=== PATIENT | male | born 1935 | race African-American/Black ===

== ENCOUNTER 2020-05-05 21:49 | Emergency (ER) | payer MEDICARE, BC ==
[2020-05-05 23:23] LABS: #Eosinphils 0.1 thou/uL (0.0-0.7); #Lymphocytes 0.5 thou/uL (1.20-3.40); #Monocytes 0.4 thou/uL (0.11-0.59); #Neutrophils 2.7 thou/uL (1.40-6.50); %Basophils 0.7 % (0.0-1.0); %Eosinophils 2.7 % (0.0-10.0); %Lymphocytes 13.3 % (21.0-51.0); %Monocytes 10.8 % (0.0-10.0); %Neutrophils 72.4 % (42.0-75.0); Hemoglobin 9.8 g/dL (14.0-18.0); Mean Corpuscular HGB CONC 28.9 g/dL (32.0-36.0); Mean Corpuscular Hemoglobin 28.1 pg (27.0-31.0); Mean Corpuscular Volume 97.1 fL (78.0-98.0); Mean Platelet Volume 8.1 fL (7.4-10.4); Platelet Count 179 thou/uL (130-400); RBC Distribution Width 16.4 % (11.5-14.5); White Blood Cell (WBC) Count 3.8 thou/uL (4.8-10.8)
[2020-05-05 23:37] LABS: ALT (SGPT) 7 U/L (8-55); AST (SGOT) 11 U/L (5-34); Albumin 2.8 g/dL (3.4-4.8); Alkaline Phosphatase 57 U/L (40-110); Anion Gap 17 mmol/L (10-20); BUN (Urea Nitrogen) 40 mg/dL (8.4-25.7); Bilirubin, Total 0.4 mg/dL (0.2-1.2); CK (CPK) 51 U/L (30-200); Calc. Creatinine Clearance 0 mL/min (70-130); Calcium 7.9 mg/dL (7.8-10.44); Carbon Dioxide 24 mmol/L (23-31); Chloride 104 mmol/L (98-107); Estimated GFR-MDRD 16; Globulin 3.7 g/dL (2.4-3.5); Glucose 88 mg/dL (83-110); Potassium 4.9 mmol/L (3.5-5.1); Protein, Total 6.5 g/dL (5.8-8.1); Sodium 140 mmol/L (136-145)
[2020-05-05 23:39] LABS: Anisocytosis SLIGHT = 6-15 cells (100X) (0-5/hpf); MDiff Complete? YES; Platelet Morphology Comment Appears Adequate
--- NOTE | 2020-05-06 07:19 | RAD ---
RIGHT ELBOW: DATE: 05/05/2020. FINDINGS: Multiple views show no evidence of fracture, dislocation, or joint effusion. All bones appeared inta ct. IMPRESSION: No acute bony finding. POS: HOME
--- NOTE | 2020-05-06 07:42 | RAD ---
PORTABLE CHEST: DATE: 05/05/2020. FINDINGS: An AP portable film at 2214 is compared with a 01/15/2019 study. The heart is mildly enlarged, perhap s a little more so than before. However, there was no congestive change, pleural effusion, or lobar pulmonary infiltrate. Some mild prominence of some of the basilar markings seems minimally different than the 2019 study. IMPRESSION: Cardiomegaly, but no acute findings otherwise. No traumatic changes appreciated. POS: HOME
--- NOTE | 2020-05-06 07:56 | CT ---
PRELIMINARY REPORT/DIRECT RADIOLOGY/EMERGENCY AFTER HOURS PROCEDURE: EXAMS: 1. CT Head, without Contrast 2. CT Cervical Spine, without Contrast DATE/ TIME: 05/05/2020, 10:07 PM INDICATION: Trauma, fall; altered mental status TECHNIQUE: Axial CT imaging was performed through the head without intravenous administration of con trast. Helical CT was then performed through the cervical spine with coronal and sagittal reconstruc tions generated and reviewed. Exam was performed using one or more of the following dose reduction t echniques: automated exposure control, adjustment of the mA and/or kV according to patient size, or use of iterative reconstruction technique. COMPARISON: None. CT HEAD FINDINGS: There is no intracranial hemorrhage. The brain exhibits caozfane-px-ujuirntv atro phy with cortical thinning. Fairly confluent hypoattenuation in the residual cerebral white matter i s seen; although nonspecific this is most commonly related to the sequela of chronic small-vessel isc hemia. There is no CT evidence of an acute infarct. Not well seen is what appears to be an area of cortical calcification superiorly in the right parietal lobe. 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 Cranial vault shows no evidence of fracture. Imaging begins at the lower maxillary level. Orbital s tructures are unremarkable. Paranasal sinuses and left mastoid air cells are clear. A small amount of fluid is seen in the right mastoid. 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 IMPRESSION: 1. CT imaging shows no acute traumatic intracranial abnormality. 2. 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 CT CERVICAL SPINE FINDINGS: There is no evidence of fracture. Multilevel advanced facet arthropathy , left worse than right, is seen. There is no malalignment. Robust anterior spondylosis is seen at C5-C6 and C6-C7. Prevertebral and retropharyngeal soft tissues are normal. There is no apical pneum othorax. IMPRESSION: 1. CT of the cervical spine shows no evidence of fracture. 2. Degenerative spondylosis. ELECTRONICALLY SIGNED BY: Severiano Ulloa DO May 05, 2020 10:58:[address] PM [address] FINAL REPORT CT OF THE CERVICAL SPINE: DATE: 05/05/2020. FINDINGS: CT of the cervical spine was done following trauma. No acute fracture was seen. There is no disloca tion or soft tissue swelling. The C1 to dens distance is normal. Degenerative changes are present t hroughout the spine. Some bridging anterior osteophytes are quite prominent at the C4 through C7 lev els. There is loss of the normal cervical lordosis which could be due to muscle spasm or could be th e patient's norm. Findings by level follow: C1-C2: No acute findings. C2-C3: No acute findings. C3-C4: Concentric disk-osteophyte complex. Mild right foraminal narrowing and moderate left foramin al narrowing due to osteophytes. C4-C5: Severe left facet arthritis and severe left foraminal stenosis. Mild right foraminal stenosi s. C5-C6: Moderate right foraminal stenosis and severe left foraminal stenosis. C6-C7: Moderate right foraminal stenosis. Significant disk-osteophyte complex posteriorly without c entral canal stenosis. C7-T1: No acute findings. T1-T2: No acute findings. T2-3: No acute findings. The soft tissues of the neck showed no traumatic findings. IMPRESSION: Diffuse degenerative changes as noted above. Mild loss of lordosis, but no fracture seen. POS: HOME
--- NOTE | 2020-05-06 07:58 | CT ---
PRELIMINARY REPORT/DIRECT RADIOLOGY/EMERGENCY AFTER HOURS PROCEDURE: EXAMS: 1. CT Head, without Contrast 2. CT Cervical Spine, without Contrast DATE/ TIME: 05/05/2020, 10:07 PM INDICATION: Trauma, fall; altered mental status TECHNIQUE: Axial CT imaging was performed through the head without intravenous administration of con trast. Helical CT was then performed through the cervical spine with coronal and sagittal reconstruc tions generated and reviewed. Exam was performed using one or more of the following dose reduction t echniques: automated exposure control, adjustment of the mA and/or kV according to patient size, or use of iterative reconstruction technique. COMPARISON: None. CT HEAD FINDINGS: There is no intracranial hemorrhage. The brain exhibits wudnrvbt-no-anhoukcr atro phy with cortical thinning. Fairly confluent hypoattenuation in the residual cerebral white matter i s seen; although nonspecific this is most commonly related to the sequela of chronic small-vessel isc hemia. There is no CT evidence of an acute infarct. Not well seen is what appears to be an area of cortical calcification superiorly in the right parietal lobe. 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 Cranial vault shows no evidence of fracture. Imag ing begins at the lower maxillary level. Orbital structures are unremarkable. Paranasal sinuses and left mastoid air cells are clear. A small amount of fluid is seen in the right mastoid. Marked deg enerative osteoarthrosis of the right temporomandibular articulation is seen with possible chronic fr acture-nonunion of the condyle. IMPRESSION: 1. CT imaging shows no acute traumatic intracranial abnormality. 2. 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 CT CERVICAL SPINE FINDINGS: There is no evidence of fracture. Multilevel advanced facet arthropathy , left worse than right, is seen. There is no malalignment. Robust anterior spondylosis is seen at C5-C6 and C6-C7. Prevertebral and retropharyngeal soft tissues are normal. There is no apical pneum othorax. IMPRESSION: 1. CT of the cervical spine shows no evidence of fracture. 2. Degenerative spondylosis. ELECTRONICALLY SIGNED BY: Severiano Ulloa DO May 05, 2020 10:58:[address] PM CDT FINAL REPORT CT OF THE BRAIN WITHOUT CONTRAST: DATE: 05/05/2020. FINDINGS: No prior films were available for comparison. Diffuse atrophy and mild compensatory dilatation of the ventricles was present. Deep white matter enoch cency is consistent with chronic microvascular ischemic change. No intracranial bleeding or extraaxi al hematoma was seen. There is no sign of acute stroke, mass, or edema. Some calcification is seen potentially relating to the meninges in the high right parietal region. I doubt its current signific ance. The skull appears intact as did the visible portions of the facial bones. The visible paranas al sinuses are clear. IMPRESSION: No acute intracranial findings. Chronic ischemic changes as noted. POS: HOME
== END 2020-05-06 00:13 | disposition home or self-care (01) ==
LOC: BURERS 21:49
DX: S00.93XA Contusion of unspecified part of head, initial encounter (principal); I12.0 Hypertensive chronic kidney disease with stage 5 chronic kidney disease or end stage renal disease; N18.6 End stage renal disease; Z99.2 Dependence on renal dialysis; E78.5 Hyperlipidemia, unspecified; Z87.891 Personal history of nicotine dependence; W18.30XA Fall on same level, unspecified, initial encounter
CPT/HCPCS: 36415; 70450; 71045; 72125; 80053; 82550; 83605; 83880; 84484; 85025; 87040; 87077; 87149; 87186; 93005; 96360

== ENCOUNTER 2020-06-23 20:30 | Emergency (ER) | payer MEDICARE, BC ==
[2020-06-23 21:21] LABS: #Eosinphils 0.1 thou/uL (0.0-0.7); #Lymphocytes 0.5 thou/uL (1.20-3.40); #Monocytes 0.3 thou/uL (0.11-0.59); %Basophils 0.6 % (0.0-1.0); %Eosinophils 2.5 % (0.0-10.0); %Lymphocytes 11.5 % (21.0-51.0); %Monocytes 8.5 % (0.0-10.0); %Neutrophils 76.8 % (42.0-75.0); Hemoglobin 10.8 g/dL (14.0-18.0); Mean Corpuscular HGB CONC 29.8 g/dL (32.0-36.0); Mean Corpuscular Hemoglobin 28.9 pg (27.0-31.0); Mean Platelet Volume 7.6 fL (7.4-10.4); Platelet Count 224 thou/uL (130-400); RBC Distribution Width 18.2 % (11.5-14.5); Red Blood Cell (RBC) Count 3.75 mill/uL (4.70-6.10); White Blood Cell (WBC) Count 3.9 thou/uL (4.8-10.8)
[2020-06-23 21:34] LABS: Anion Gap 17 mmol/L (10-20); BUN (Urea Nitrogen) 31 mg/dL (8.4-25.7); Calc. Creatinine Clearance 0 mL/min (70-130); Carbon Dioxide 24 mmol/L (23-31); Chloride 102 mmol/L (98-107); Estimated GFR-MDRD 14; Glucose 93 mg/dL (83-110); Potassium 4.2 mmol/L (3.5-5.1); Sodium 139 mmol/L (136-145)
--- NOTE | 2020-06-24 10:04 | CT ---
CT OF THE BRAIN WITHOUT CONTRAST: INDICATION: History of trauma. COMPARISON: Prior exam dated 04/15/2020. FINDINGS: The calcification overlying a cortex of the right parietal lobe is stable. There is chronic small-ve ssel white matter ischemic change and generalized atrophy that is stable. No definite acute infarct, hemorrhage, or hydrocephalus is noted. There is partial effusion of the right mastoid air cells whi ch is stable. The skull is intact. IMPRESSION: 1. No acute intracranial abnormality. 2. Stable chronic findings as above. POS: BH
--- NOTE | 2020-06-24 10:13 | CT ---
CT OF THE CERVICAL SPINE WITHOUT CONTRAST: INDICATION: History of fall. COMPARISON: Prior exam dated 06/23/2020. FINDINGS: Spinal alignment is within normal limits. There is moderate multilevel degenerative disk disease mos t pronounced at C5-6 and C6-7. There is mild multilevel facet osteoarthrosis but moderate left multi level facet osteoarthrosis at C4-5. No acute fracture or subluxation is evident. The craniocervical junction is normal-appearing. Prevertebral soft tissues and lung apices appear within normal limits . IMPRESSION: 1. No acute osseous abnormality. 2. Preliminary report on the CT of the head and CT of the cervical spine was called by Dr. Mcfarlane to Dr. Rangel at 2141 hours on 06/23/2020. CODE CR POS: BH
== END 2020-06-23 22:20 | disposition home or self-care (01) ==
LOC: BURERS 20:30
DX: S09.90XA Unspecified injury of head, initial encounter (principal); I12.0 Hypertensive chronic kidney disease with stage 5 chronic kidney disease or end stage renal disease; N18.6 End stage renal disease; D63.1 Anemia in chronic kidney disease; E78.5 Hyperlipidemia, unspecified; I25.10 Atherosclerotic heart disease of native coronary artery without angina pectoris; Z87.891 Personal history of nicotine dependence; Z99.2 Dependence on renal dialysis; W18.30XA Fall on same level, unspecified, initial encounter
CPT/HCPCS: 36415; 70450; 72125; 80048; 85025

== ENCOUNTER 2020-08-11 09:27 | Emergency (ER) | payer BC, MEDICARE ==
[2020-08-11 10:08] LABS: #Lymphocytes 0.4 thou/uL (1.20-3.40); #Monocytes 0.5 thou/uL (0.11-0.59); #Neutrophils 2.8 thou/uL (1.40-6.50); %Basophils 1.3 % (0.0-1.0); %Eosinophils 0.8 % (0.0-10.0); %Lymphocytes 10.2 % (21.0-51.0); %Monocytes 12.2 % (0.0-10.0); %Neutrophils 75.5 % (42.0-75.0); Hemoglobin 10.9 g/dL (14.0-18.0); Mean Corpuscular Hemoglobin 29.3 pg (27.0-31.0); Mean Corpuscular Volume 97.7 fL (78.0-98.0); Mean Platelet Volume 7.4 fL (7.4-10.4); Platelet Count 167 thou/uL (130-400); RBC Distribution Width 16.4 % (11.5-14.5); Red Blood Cell (RBC) Count 3.72 mill/uL (4.70-6.10); White Blood Cell (WBC) Count 3.7 thou/uL (4.8-10.8)
[2020-08-11 10:19] LABS: ALT (SGPT) Less than 7 U/L (8-55); AST (SGOT) 17 U/L (5-34); Albumin 3.1 g/dL (3.4-4.8); Alkaline Phosphatase 61 U/L (40-110); Anion Gap 22 mmol/L (10-20); BUN (Urea Nitrogen) 77 mg/dL (8.4-25.7); Bilirubin, Total 0.4 mg/dL (0.2-1.2); Calc. Creatinine Clearance 0 mL/min (70-130); Carbon Dioxide 20 mmol/L (23-31); Chloride 103 mmol/L (98-107); Globulin 4.2 g/dL (2.4-3.5); Glucose 123 mg/dL (83-110); Potassium 4.9 mmol/L (3.5-5.1); Protein, Total 7.3 g/dL (5.8-8.1); Sodium 140 mmol/L (136-145)
[2020-08-11 10:21] LABS: MDiff Complete? YES; Manual Diff?? NO
[2020-08-11] MEDS ORDERED: Acetaminophen 325 MG TAB ONE (11:01)
--- NOTE | 2020-08-11 19:20 | RAD ---
PORTABLE CHEST: Date: 08-11-2020 An AP portable film at 1005 is compared with a 05-05-2020 study. FINDINGS: Mild cardiomegaly is about the same as before. There is no vascular congestion, edema, or pleural eff usion. The lungs are fully inflated and clear. Some calcified nodes are noted in the right hilum as w ell as a calcified granuloma in the right lung. There is no mediastinal widening or shift. No fractur es were appreciated. IMPRESSION: No acute thoracic findings. POS: HOME
--- NOTE | 2020-08-11 19:24 | RAD ---
RIGHT SHOULDER THREE VIEWS: Date: 08-11-2020 FINDINGS: There is at least an anterior subluxation of humeral head, if not dislocation. A very prominent Hill- Sachs deformity is seen in the humeral head. There is some irregularity of the superior lateral porti on of the glenoid fossa. Looking back at a prior chest radiograph dated 04-15-2020, the right shoulder can barely be seen at the edge of the film. There is a suggestion that the appearance is probably not substantially different. Thus, my suspicion is that this subluxation/mild dislocation is chronic. Th e Hill-Sachs deformity suggests prior dislocations. Whether any part of this has an acute component t o it or not, it is difficult to be sure of. The AC joint is normal in width. The visible adjacent rib s appear intact. IMPRESSION: 1. Evidence of prior shoulder dislocations. 2. Anterior subluxation of the humeral head if not a slight dislocation. As stated above, I am more i nclined to believe this a chronic finding, however, the recent fall could have exacerbated the situat ion further. Findings discussed with Dr. Rangel at 1051 on 08-11-2020. POS: HOME
--- NOTE | 2020-08-11 20:28 | CT ---
CT BRAIN WITHOUT CONTRAST: Date: 08-11-2020 Computed tomography of the brain was done after a fall. FINDINGS: There is a large obvious soft tissue hematoma of the scalp anteriorly over the right forehead. The un derlying frontal bone appears intact. There is no sign of intracranial bleeding or extraaxial hematom a. Moderately severe atrophy is present with mild compensatory dilatation of the ventricles. There is no sign of acute stroke, mass or edema. Chronic ischemic changes are present in the deep white matte r. IMPRESSION: 1. Atrophy and chronic ischemic changes but no acute intracranial findings. 2. Scalp hematoma over the right forehead. Preliminary report called to Dr. Rangel at 1033 on 08-11-2020. POS: HOME
--- NOTE | 2020-08-11 20:30 | CT ---
CT FACIAL BONES: Date: 08-11-[address] of the face was done following trauma. FINDINGS: No facial fractures were demonstrated. The nasal bones, orbital rims, zygomatic arches and maxilla al l appeared intact. The mandible appeared intact, though there is some chronic flattening of the right mandibular condyle. The surrounding paranasal sinuses are clear. The retroorbital areas appear neela l. Degenerative changes are prominent in the upper cervical regions. Calcifications are seen in and a round the sella turcica of uncertain significance. IMPRESSION: No evidence of bony fracture. Soft tissue hematoma over the right forehead, but the underlying bone a ppears intact. Preliminary report called to Dr. Rangel at 1033 on 08-11-2020. POS: HOME
--- NOTE | 2020-08-11 20:57 | CT ---
CT CERVICAL SPINE: Date: 08-11-[address] of the cervical spine was performed following trauma. Axial slices were acquired, followed by coronal and sagittal reconstructions. FINDINGS: No fracture or dislocation was seen at any cervical level. The C1-2 dens distance is normal and the s oft tissues are normal in thickness. There may be some marginal disc space narrowing at C6-7. There i s no issue of facet alignment, though there is certainly plenty of arthritic change in the facet join ts. Findings by level follow: C1-2: No acute findings. C2-3: No acute findings. C3-4: Mild facet arthritis bilaterally, worse on the left than the right. Mild right foraminal narrow ing and moderate left foraminal narrowing. C4-5: Severe facet arthritis on the left. Severe left foraminal narrowing. C5-6: Moderate bilateral foraminal narrowing. C6-7: Moderate bilateral foraminal narrowing. C7-T1: No acute findings. T1-2: No acute findings. T2-3: No acute findings. The lung apices are clear and show no pneumothorax. IMPRESSION: Degenerative changes as noted but no acute intracranial findings. Preliminary report called to Dr Rangel @ 1033 on 08/11/2020. POS: HOME
== END 2020-08-11 11:58 | disposition home or self-care (01) ==
LOC: BURERS 09:27
DX: S43.011A Anterior subluxation of right humerus, initial encounter (principal); S00.83XA Contusion of other part of head, initial encounter; D64.9 Anemia, unspecified; N18.6 End stage renal disease; I12.0 Hypertensive chronic kidney disease with stage 5 chronic kidney disease or end stage renal disease; E78.5 Hyperlipidemia, unspecified; I25.10 Atherosclerotic heart disease of native coronary artery without angina pectoris; Z87.891 Personal history of nicotine dependence; W01.198A Fall on same level from slipping, tripping and stumbling with subsequent striking against other object, initial encounter
CPT/HCPCS: 36415; 70450; 70486; 71045; 72125; 80053; 84484; 85025; 93005

== ENCOUNTER 2020-09-23 10:08 | Emergency (ER) | payer BC, MEDICARE ==
[2020-09-23 10:49] LABS: #Basophils 0.1 thou/uL (0.0-0.2); #Eosinphils 0.2 thou/uL (0.0-0.7); #Lymphocytes 0.7 thou/uL (1.20-3.40); #Monocytes 0.4 thou/uL (0.11-0.59); #Neutrophils 3.8 thou/uL (1.40-6.50); %Eosinophils 3.4 % (0.0-10.0); %Lymphocytes 13.2 % (21.0-51.0); %Monocytes 7.7 % (0.0-10.0); %Neutrophils 74.5 % (42.0-75.0); Hemoglobin 10.7 g/dL (14.0-18.0); MDiff Complete? YES; Manual Diff?? NO; Mean Corpuscular HGB CONC 29.4 g/dL (32.0-36.0); Mean Corpuscular Hemoglobin 28.7 pg (27.0-31.0); Mean Corpuscular Volume 97.7 fL (78.0-98.0); Mean Platelet Volume 9.5 fL (7.4-10.4); Platelet Count 143 thou/uL (130-400); RBC Distribution Width 15.7 % (11.5-14.5); Red Blood Cell (RBC) Count 3.73 mill/uL (4.70-6.10); White Blood Cell (WBC) Count 5.1 thou/uL (4.8-10.8)
[2020-09-23 11:10] LABS: ALT (SGPT) 13 U/L (8-55); AST (SGOT) 15 U/L (5-34); Alkaline Phosphatase 55 U/L (40-110); Anion Gap 23 mmol/L (10-20); BUN (Urea Nitrogen) 106 mg/dL (8.4-25.7); Bilirubin, Total 0.5 mg/dL (0.2-1.2); Calc. Creatinine Clearance 0 mL/min (70-130); Carbon Dioxide 15 mmol/L (23-31); Chloride 107 mmol/L (98-107); Globulin 3.8 g/dL (2.4-3.5); Glucose 112 mg/dL (83-110); Potassium 6.3 mmol/L (3.5-5.1); Protein, Total 6.8 g/dL (5.8-8.1); Sodium 139 mmol/L (136-145)
[2020-09-23 11:12] LABS: INR-International Normal Ratio 1.2; PTT 42.1 sec (22.9-36.1); Prothrombin Time 15.2 sec (12.0-14.7)
--- NOTE | 2020-09-23 11:56 | CT ---
CT ABDOMEN AND PELVIS WITHOUT CONTRAST: Date: 09/23/2020 Comparison is made with the prior study dated 01/13/2019. There has not been a tremendous amount of interval change. The lungs are clear, except for some minor basilar scarring. There might be a trace of pericardial effusion. The intrahepatic bile ducts are qu ite prominent in this patient, but little different than the 2019 study. The liver, spleen, and pancr eas otherwise show no acute findings. Polycystic kidney disease is seen bilaterally as usual. There is severe left hydronephrosis and hydro ureter, also comparable to the prior study. The urinary bladder is quite distended and the prostate i s enlarged. The bowel shows no dilation, gross wall thickening, or free air. CT of the pelvis shows no additional findings of concern. If any free fluid is present, it is minimal . Degenerative changes are seen in the spine. IMPRESSION: 1. Polycystic kidney disease and severe left hydronephrosis, but the appearance is unchanged from 20 19. 2. No gross GI tract findings of concern. 3. Some dilation of intrahepatic bile ducts, but the appearance is similar to the prior study. Preliminary report called to Dr. Burgos at 1124 hours on 09/23/2020. CODE CR. POS: HOME
[2020-09-23] MEDS ORDERED: Calcium Gluc 4.6 MEQ/10 ML (100 MG/ML) ONE (13:01)
[2020-09-23] MEDS ORDERED: Insulin Regular 300 UNITS/3 ML VIAL ONE (13:01)
--- NOTE | 2020-09-23 14:59 | RAD ---
PORTABLE CHEST: Date: 09/23/2020 An AP portable film at 1242 hours is compared with the 08/11/2020 study. The heart is slightly enlarged, but no different than the prior exam. There is no vascular congestion , edema, or focal pulmonary infiltrate. Some calcified nodes are seen in the right hilum. IMPRESSION: Stable exam with no acute finding. POS: HOME
== END 2020-09-23 16:40 | disposition short-term general hospital (02) ==
LOC: BURERS 10:08
DX: K92.2 Gastrointestinal hemorrhage, unspecified (principal); E87.5 Hyperkalemia; I12.0 Hypertensive chronic kidney disease with stage 5 chronic kidney disease or end stage renal disease; N18.6 End stage renal disease; E78.5 Hyperlipidemia, unspecified; Z99.2 Dependence on renal dialysis; Z87.891 Personal history of nicotine dependence; I25.10 Atherosclerotic heart disease of native coronary artery without angina pectoris
CPT/HCPCS: 71045; 74176; 80053; 82274; 85025; 85610; 85730; 93005; 94760; 96374; J1815; J2001

== ENCOUNTER 2021-05-17 21:20 | Emergency (ER) | payer MEDICARE, BC ==
[2021-05-17] MEDS ORDERED: Piperacillin/Tazobactam 4.5 GM VIAL ONE (21:37)
[2021-05-17] MEDS ORDERED: Acetaminophen 325 MG TAB ONE (21:37)
[2021-05-17] MEDS ORDERED: Sodium Chloride 0.9% 100 ML ONE (21:38)
[2021-05-17 21:40] LABS: #Basophils 0.1 thou/uL (0.0-0.2); #Lymphocytes 0.5 thou/uL (1.20-3.40); #Monocytes 0.3 thou/uL (0.11-0.59); #Neutrophils 4.6 thou/uL (1.40-6.50); %Basophils 1.3 % (0.0-1.0); %Eosinophils 0.4 % (0.0-10.0); %Lymphocytes 9.1 % (21.0-51.0); %Monocytes 5.2 % (0.0-10.0); Hemoglobin 8.2 g/dL (14.0-18.0); Mean Corpuscular Hemoglobin 31.8 pg (27.0-31.0); Mean Corpuscular Volume 99.2 fL (78.0-98.0); Mean Platelet Volume 9.6 fL (7.4-10.4); Platelet Count 139 thou/uL (130-400); RBC Distribution Width 16.7 % (11.5-14.5); Red Blood Cell (RBC) Count 2.57 mill/uL (4.70-6.10); White Blood Cell (WBC) Count 5.5 thou/uL (4.8-10.8)
[2021-05-17] MEDS ORDERED: Acetaminophen 325 MG Suppository ONE (21:50)
[2021-05-17] MEDS ORDERED: Acetaminophen 650 MG Suppository ONE (21:50)
[2021-05-17 21:55] LABS: ALT (SGPT) 31 U/L (8-55); AST (SGOT) 90 U/L (5-34); Albumin 3.2 g/dL (3.4-4.8); Alkaline Phosphatase 50 U/L (40-110); Anion Gap 26 mmol/L (10-20); BUN (Urea Nitrogen) 91 mg/dL (8.4-25.7); Bilirubin, Total 0.5 mg/dL (0.2-1.2); CK (CPK) 1912 U/L (30-200); Calc. Creatinine Clearance 0 mL/min (70-130); Calcium 8.4 mg/dL (7.8-10.44); Carbon Dioxide 19 mmol/L (23-31); Chloride 101 mmol/L (98-107); Glucose 86 mg/dL (83-110); Potassium 5.1 mmol/L (3.5-5.1); Protein, Total 6.2 g/dL (5.8-8.1); Sodium 141 mmol/L (136-145)
[2021-05-17 22:17] LABS: Bilirubin Negative (Negative); Blood, Urine Moderate (Negative); Clarity Cloudy (Clear); Glucose, Urine (Dipstick) Negative (Negative); Ketone, Urine Negative (Negative); Leukocyte Large (Negative); Nitrite Negative (Negative); Protein, Urine (Dipstick) > or equal to 300 mg/dL (Neg-Trace); Urobilinogen 0.2 mg/dL (Less than 2)
[2021-05-17 22:19] LABS: CKMB 4.5 ng/mL (0-6.6)
[2021-05-17 22:27] LABS: Bacteria/HPF 4+ HPF (None Seen); Mucous/LPF 3+ LPF (<2+); Squamous Epithelial 0-3 HPF (0-3); WBC/HPF 21-50 HPF (0-3)
[2021-05-17 22:56] LABS: SARS-CoV-2 NAA Rapid Test DETECTED (NotDetected)
[2021-05-18] MEDS ORDERED: Dexamethasone 10 MG/ML VIAL ONE (00:11)
== END 2021-05-18 00:33 | disposition short-term general hospital (02) ==
LOC: BURERS 21:20
DX: A41.89 Other specified sepsis (principal); U07.1 COVID-19; J12.82 Pneumonia due to coronavirus disease 2019; N30.00 Acute cystitis without hematuria; I12.0 Hypertensive chronic kidney disease with stage 5 chronic kidney disease or end stage renal disease; N18.6 End stage renal disease; E78.5 Hyperlipidemia, unspecified; I25.10 Atherosclerotic heart disease of native coronary artery without angina pectoris
CPT/HCPCS: 71045; 80053; 82550; 82553; 83605; 83880; 84484; 85025; 87040; 87086; 93005; 94760; U0002; 36415; 51701; 81003; 81015; 87077; 87186; 96365; 96375; J1100; J2543; J3370; J3490

== ENCOUNTER 2022-03-11 10:48 | Emergency (ER) | payer MEDICARE ==
[2022-03-11] MEDS ORDERED: Fentanyl 100 MCG/2 ML VIAL SLOW IVP ONE (10:49)
[2022-03-11] MEDS ORDERED: Fentanyl 100 MCG/2 ML VIAL ONE (11:22)
[2022-03-11 11:31] LABS: #Basophils 0.1 thou/uL (0.0-0.2); #Eosinphils 0.1 thou/uL (0.0-0.7); #Lymphocytes 1.4 thou/uL (1.20-3.40); #Monocytes 0.2 thou/uL (0.11-0.59); #Neutrophils 6.1 thou/uL (1.40-6.50); %Basophils 1.3 % (0.0-1.0); %Eosinophils 1.3 % (0.0-10.0); %Lymphocytes 17.5 % (21.0-51.0); %Neutrophils 76.9 % (42.0-75.0); Hemoglobin 10.4 g/dL (14.0-18.0); Mean Corpuscular HGB CONC 30.9 g/dL (32.0-36.0); Mean Corpuscular Hemoglobin 30.4 pg (27.0-31.0); Mean Corpuscular Volume 98.5 fL (78.0-98.0); Mean Platelet Volume 8.6 fL (7.4-10.4); Platelet Count 140 thou/uL (130-400)
[2022-03-11] MEDS ORDERED: Sodium Bicarb 50 MEQ/50 ML Abboject 8.4% SYRINGE ONE ×2 (11:42→11:43)
[2022-03-11 11:47] LABS: ALT (SGPT) 51 U/L (8-55); AST (SGOT) 79 U/L (5-34); Albumin 2.8 g/dL (3.4-4.8); Alkaline Phosphatase 66 U/L (40-110); Anion Gap 20 mmol/L (10-20); BUN (Urea Nitrogen) 31 mg/dL (8.4-25.7); Bilirubin, Total 0.6 mg/dL (0.2-1.2); Calc. Creatinine Clearance 0 mL/min (70-130); Calcium 9.5 mg/dL (7.8-10.44); Carbon Dioxide 19 mmol/L (23-31); Chloride 113 mmol/L (98-107); Estimated GFR 13; Globulin 2.3 g/dL (2.4-3.5); Potassium 3.9 mmol/L (3.5-5.1); Protein, Total 5.1 g/dL (5.8-8.1); Sodium 148 mmol/L (136-145)
[2022-03-11 11:49] LABS: Base Excess-Venous -12.9 mmol/L (-2.0 to 3.0); Bicarbonate (HCO3v) 18.1 mmol/L (22.0-28.0); CO2 Tension (PvCO2) 67.3 mmHg (42.0-51.0); Calcium, Ionized 1.27 mmol/L (1.15-1.33); Chloride 115 mmol/L (98-107); Sodium 143 mmol/L (138-145); T. Carbon Dioxide 20.1 mmol/L (22.0-28.0); vO2 Saturation-calc 99.2 % (60.0-85.0)
[2022-03-11 11:50] LABS: Glucose 57 mg/dL (83-110)
[2022-03-11 12:06] LABS: CKMB 4.5 ng/mL (0-6.6)
[2022-03-11] MEDS ORDERED: Atropine Sulfate 1 mg/10 ml Syringe IVP ONE (13:19)
[2022-03-11] MEDS ORDERED: Sodium Bicarb 50 MEQ/50 ML Abboject 8.4% SYRINGE IVP ONE (13:20)
== END 2022-03-11 11:53 | disposition short-term general hospital (02) ==
LOC: BURERS 10:48
DX: I46.9 Cardiac arrest, cause unspecified (principal); E87.2 Acidosis
CPT/HCPCS: 36556; 51702; 71045; 80053; 82330; 82553; 82803; 83880; 84484; 85025; 93005; 96374; 96375; J0461; J3010